=== PATIENT | female | born 1980 | race Hispanic/Latino ===

== ENCOUNTER 2018-12-24 19:32 | Emergency (ER) | payer SELFPAY ==
[2018-12-24 20:32] LABS: Bacteria/HPF None Seen HPF (None Seen); Bilirubin Negative (Negative); Blood, Urine Trace (Negative); Clarity Clear (Clear); Glucose, Urine (Dipstick) Normal (Negative); Leukocyte 75 Leu/uL (Negative); Nitrite Negative (Negative); Protein, Urine (Dipstick) 20 mg/dL (Neg-Trace)
[2018-12-24 20:33] LABS: Pregnancy Test - Urine (BHCG) Negative (Negative); Pregu Control Background? CLEAR/WHITE (CLR/WHITE); Pregu Control Bar Appear? YES (CONTROL BAR); Specific Gravity 1.035 (1.002-1.036)
[2018-12-24] MEDS ORDERED: Ketorolac Tromethamine 30 MG/ML VIAL ONE (20:40)
== END 2018-12-24 21:15 | disposition home or self-care (01) ==
LOC: ERS 19:32
DX: M70.41 Prepatellar bursitis, right knee (principal); M54.5 Low back pain; R10.9 Unspecified abdominal pain
CPT/HCPCS: 81003; 81015; 81025; 99283; J1885

== ENCOUNTER 2019-01-01 12:49 | Outpatient (CLI) | payer OTHER ==
--- NOTE | 2019-01-01 13:08 | RAD ---
EXAM: XR Knee Rt 2 View PROVIDED CLINICAL HISTORY: Pain FINDINGS: There is no evidence for fracture or other acute osseous abnormality. Alignment appears anatomic. Margo nt spaces appear preserved. IMPRESSION: No evidence for an acute osseous abnormality or significant arthropathy.
== END 2019-01-01 12:50 | disposition home or self-care (01) ==
LOC: BICRAD 12:49
PROVIDERS: ATTEND Family Medicine
DX: M25.561 Pain in right knee (principal)

== ENCOUNTER 2021-01-08 11:49 | Emergency (ER) | payer SELFPAY ==
[2021-01-08] MEDS ORDERED: Acetaminophen 500 MG TAB ONE (12:47)
[2021-01-08] MEDS ORDERED: Ketorolac Tromethamine 30 MG/ML VIAL ONE (12:47)
[2021-01-08 12:49] LABS: #Lymphocytes 1.2 thou/uL (1.20-3.40); #Monocytes 0.5 thou/uL (0.11-0.59); #Neutrophils 1.7 thou/uL (1.40-6.50); %Basophils 0.4 % (0.0-1.0); %Eosinophils 0.8 % (0.0-10.0); %Lymphocytes 35.8 % (21.0-51.0); %Monocytes 13.3 % (0.0-10.0); %Neutrophils 49.7 % (42.0-75.0); Mean Corpuscular HGB CONC 33.1 g/dL (32.0-36.0); Mean Corpuscular Volume 72.5 fL (78.0-98.0); Mean Platelet Volume 9.8 fL (7.4-10.4); Platelet Count 212 thou/uL (130-400); RBC Distribution Width 14.3 % (11.5-14.5); Red Blood Cell (RBC) Count 4.59 mill/uL (4.20-5.40); White Blood Cell (WBC) Count 3.4 thou/uL (4.8-10.8)
[2021-01-08 12:53] LABS: BHCG - Serum Negative (NEGATIVE); Pregs Control Background? CLEAR/WHITE (CLR/WHITE); Pregs Control Bar Appear? YES (CONTROL BAR)
[2021-01-08 13:11] LABS: ALT (SGPT) 25 U/L (8-55); AST (SGOT) 27 U/L (5-34); Albumin 3.7 g/dL (3.5-5.0); Alkaline Phosphatase 69 U/L (40-110); Anion Gap 10 mmol/L (10-20); BUN (Urea Nitrogen) 13 mg/dL (7.0-18.7); Bilirubin, Total 0.3 mg/dL (0.2-1.2); Calc. Creatinine Clearance 0 mL/min (70-130); Calcium 8.7 mg/dL (7.8-10.44); Carbon Dioxide 25 mmol/L (22-29); Chloride 107 mmol/L (98-107); Globulin 3.1 g/dL (2.4-3.5); Glucose 89 mg/dL (70-105); Potassium 3.9 mmol/L (3.5-5.1); Protein, Total 6.8 g/dL (6.0-8.3); Sodium 138 mmol/L (136-145)
[2021-01-08 13:12] LABS: MDiff Complete? YES; Microcytosis SLIGHT = 6-15 cells (100X) (0-5/hpf); Ovalocytes SLIGHT = 2-5 cells (100X) (0-1/hpf); Platelet Morphology Comment Appears Adequate; Polychromasia SLIGHT = 2-3 cells (100X) (0-2/hpf)
[2021-01-08 20:55] LABS: SARS-CoV-2 PCR by NAA DETECTED (NotDetected)
== END 2021-01-08 14:13 | disposition home or self-care (01) ==
LOC: ERS 11:49
DX: U07.1 COVID-19 (principal); R07.9 Chest pain, unspecified
CPT/HCPCS: 36415; 71045; 80053; 84484; 84703; 85025; 93005; 96372; J1885; U0003; U0005

== ENCOUNTER 2022-12-15 13:02 | Emergency (ER) | payer SELFPAY ==
[2022-12-15] MEDS ORDERED: Ketorolac Tromethamine 30 MG/ML VIAL ONE (13:59)
[2022-12-15] MEDS ORDERED: Diazepam 5 MG TAB ONE (14:00)
== END 2022-12-15 14:30 | disposition home or self-care (01) ==
LOC: ERS 13:02
DX: M43.6 Torticollis (principal); M62.838 Other muscle spasm
CPT/HCPCS: 96372; 99283; J1885